=== PATIENT | male | born 1980 | race Caucasian/White ===

== ENCOUNTER 2024-07-19 10:08 | Outpatient (CLI) | payer OTHER, SELFPAY ==
--- NOTE | 2024-07-19 10:11 | US_ITS ---
FINAL REPORT CLINICAL HISTORY: COLD, FEET, DECREASED PEDAL PULSES. BOTH FEET HAD PREVIOUS BROKEN BONES CRUSHING INJURIES, SMOKER, LEG PAIN COMPARISON: None FINDINGS: ANKLE-BRACHIAL PRESSURE INDICES Pressure indices are as follows: RIGHT LOWER EXTREMITY: Ankle-brachial pressure index: 1.2 Comments: Normal LEFT LOWER EXTREMITY: Ankle-brachial pressure index: 1.3 Comments: Normal CONCLUSION: No evidence of significant obstructive peripheral vascular disease of the lower extremities Reviewed, Interpreted and Dictated by Reilly Alvarado III, MD Transcribed by Sana Pavon Authenticated and [facility]
== END 2024-07-19 23:59 | disposition home or self-care (01) ==
LOC: RT 10:09
PROVIDERS: PCP Family Medicine; Visit Provider Podiatrist
DX: R09.89 Other specified symptoms and signs involving the circulatory and respiratory systems (principal)
CPT/HCPCS: 93923

== ENCOUNTER 2024-08-06 09:23 | Outpatient (CLI) | payer OTHER, SELFPAY ==
--- NOTE | 2024-08-06 09:26 | XR_ITS ---
FINAL REPORT CLINICAL HISTORY: foot pain COMPARISON: None FINDINGS: RIGHT FOOT Three views demonstrate no acute fracture or dislocation. The joint spaces appear normal. No acute soft tissue abnormality is seen. IMPRESSION: No acute bony abnormality. Reviewed, Interpreted and Dictated by Alex Blake MD Transcribed by La Da Silva Authenticated and [facility]
--- NOTE | 2024-08-06 09:26 | XR_ITS ---
FINAL REPORT CLINICAL HISTORY: Ankle Pain COMPARISON: None FINDINGS: LEFT ANKLE 3 views of the left ankle were obtained. There is no acute fracture or dislocation. The mortise is intact. Visualized joint spaces are normally aligned. Soft tissues are unremarkable. There is a tiny os trigonum. IMPRESSION: No acute bony abnormality. Reviewed, Interpreted and Dictated by Alex Blake MD Transcribed by La Da Silva Authenticated and [facility]
--- NOTE | 2024-08-06 09:26 | XR_ITS ---
FINAL REPORT CLINICAL HISTORY: Ankle Pain COMPARISON: None FINDINGS: RIGHT ANKLE 3 views of the right ankle were obtained. There is a sideplate and screws in the distal tibia with extensive healed fracture deformity in the distal tibial diaphysis. There is no acute fracture or dislocation. The mortise is intact. There are mild hypertrophic changes at the medial and lateral joint margins. Soft tissues are unremarkable. IMPRESSION: Extensive healed fracture deformity distal tibia. Mild degenerative changes without acute process. Reviewed, Interpreted and Dictated by Alex Blake MD Transcribed by La Da Silva Authenticated and [facility]
--- NOTE | 2024-08-06 09:26 | XR_ITS ---
FINAL REPORT CLINICAL HISTORY: foot pain COMPARISON: None FINDINGS: LEFT FOOT Three views demonstrate no acute fracture or dislocation. The joint spaces appear normal. No acute soft tissue abnormality is seen. IMPRESSION: No acute bony abnormality. Reviewed, Interpreted and Dictated by Alex Blake MD Transcribed by La Da Silva Authenticated and [facility]
== END 2024-08-06 23:59 | disposition home or self-care (01) ==
LOC: RAD 09:24
PROVIDERS: PCP Family Medicine; Visit Provider Podiatrist
DX: M19.172 Post-traumatic osteoarthritis, left ankle and foot (principal); M79.671 Pain in right foot
CPT/HCPCS: 73610; 73630